=== PATIENT | female | born 1975 | race Caucasian/White ===

== ENCOUNTER 2019-11-12 11:41 | Emergency (ER) | payer BC, SELFPAY ==
[2019-11-12 11:48] VITALS: BP 136/75; PULSE 73; RESP 20; TEMP 37.2; O2SAT 100
--- NOTE | 2019-11-12 11:56 | ED.SKABFB ---
HPI - Skin/Abscess/Foreign Bdy General Chief complaint: Skin/Abscess/Foreign Body Stated complaint: rash on lower stomach Time Seen by Provider: 11/12/19 11:56 Source: patient and RN notes reviewed History of Present Illness HPI narrative: Patient is a 44-year-old female who presents the urgent care with complaints of an itchy red rash to the right abdomen. Patient states that it showed up nearly 1 week ago. Patient states that she has been putting hydrocortisone cream on the area. No other acute complaints. No acute distress noted. Patient read the plan of care. Location: buttocks Related Data Allergies Allergy/AdvReac Type Severity Reaction Status Date / Time No Known Allergies Allergy Unverified 11/12/19 11:51 Review of Systems Review of Systems: Narrative: CONSTITUTIONAL: Denies fever, chills, or sweats. EYES: Denies visual changes, redness, or discharge. ENT: Denies rhinorrhea, congestion, sore throat, or otalgia. CARDIOVASCULAR: Denies chest pain, palpitations, or edema. RESPIRATORY: Denies cough or dyspnea. GASTROINTESTINAL: Denies abdominal pain, nausea, vomiting, or diarrhea. GENITOURINARY: Denies dysuria or hematuria. SKIN: Reports of an itchy red rash to the right abdomen MUSCULOSKELETAL: Denies back pain, joint pain, or myalgia. NEUROLOGIC: Denies headache, numbness, or weakness. All other systems reviewed are negative, except as documented in HPI. PMFSH Comments At the time of my signature, I reviewed and agree with the nursing past medical, surgical, social, and family history. There is no relevant family history pertinent to the patient complaint. Exam Narrative: Exam Narrative: GENERAL: This is a well-nourished, well-developed patient, in no apparent distress. HEAD: normocephalic, atraumatic. EYES: PERRL. Sclera clear/white. Vision is grossly intact. EARS: External ears normal NOSE: External nose normal with no obvious nasal discharge, nares without redness, no rhinorrhea. THROAT: Mucous membranes moist NECK: Neck supple SKIN: Erythemic raised dermatitis noted to the right abdomen measuring approximately 3 cm in length and 4 cm in width with moderate surrounding ecchymosis; fungal versus Rhus dermatitis NEURO: awake, alert, and oriented to person, place and time. There were no obvious focal neurologic abnormalities. EXTREMITIES: No clubbing, cyanosis, or edema. Course Vital Signs Vital signs: Vital Signs Temperature 98.9 F 11/12/19 11:48 Pulse Rate 73 11/12/19 11:48 Respiratory Rate 11/12/19 11:48 Blood Pressure 136/75 11/12/19 11:48 Pulse Oximetry 100 11/12/19 11:48 Temperature 98.9 F 11/12/19 11:48 Pulse Rate 73 11/12/19 11:48 Respiratory Rate 11/12/19 11:48 Blood Pressure 136/75 11/12/19 11:48 Pulse Oximetry 100 11/12/19 11:48 Reviewed MDM - Skin/Abscess/Foreign Bdy MDM Narrative Medical decision making narrative: Advised the patient to complete the steroid regimen as prescribed. The prescription powder is used to cover any type of yeast dermatitis. Try to avoid itching the area. Make sure to eat and drink with the medication. Do not wear occlusive clothing directly over the affected area. Follow-up with your PCP within 2 to 5 days if her worsening symptoms or failure to improve. Differential Diagnosis Differential diagnosis: Likely abscess of skin or subcutaneous tissue, cellulitis, impetigo and contact dermatitis Critical Care Time Critical Care Time Critical Care Time: No Discharge Plan Discharge Clinical Impression: Urticaria, Dermatitis Patient Disposition: Home, Self-Care Condition: Stable Instructions: Antibiotic Form, Contact Dermatitis (ED) Additional Instructions: Advised the patient to complete the steroid regimen as prescribed. The prescription powder is used to cover any type of yeast dermatitis. Try to avoid itching the area. Make sure to eat and drink with the medication. Do not wear occlusive clothing directly over
== END 2019-11-12 12:09 | disposition home or self-care (01) ==
PROVIDERS: Emergency Provider Nurse Practitioner Family; PCP Internal Medicine
DX: L50.9 Urticaria, unspecified (principal); L30.9 Dermatitis, unspecified
CPT/HCPCS: 99203; G0463

== ENCOUNTER 2022-05-12 08:13 | Emergency (ER) | payer BC, SELFPAY ==
--- NOTE | 2022-05-12 08:20 | ED.URI ---
HPI - URI/Sore Throat General Chief Complaint: Upper Respiratory Infection Stated Complaint: Sore Throat Time Seen by Provider: 05/12/22 08:20 Source: patient and RN notes reviewed History of Present Illness HPI Narrative: patient is a 46-year-old female who presents to the Urgent Care with complaints of sore throat for 1 week. Patient also reports of a mild runny nose she has been taking Mucinex, cold and flu medication. Denies any fevers, nausea, vomiting, body aches. Denies any known exposures. No acute distress noted. Patient aware of the plan of care. Some parts of this dictation were generated by voice recognition software and may contain typographical and/or grammatical inaccuracies. Related Data Home Medications Medication Instructions Recorded Confirmed citalopram 20 mg tablet 20 mg PO DAILY 05/12/22 05/12/22 Allergies Allergy/AdvReac Type Severity Reaction Status Date / Time No Known Allergies Allergy Unverified 05/12/22 08:40 Review of Systems Review of Systems: CONSTITUTIONAL: Denies fever, chills, or sweats. EYES: Denies visual changes, redness, or discharge. ENT: Reports rhinorrhea and sore throat CARDIOVASCULAR: Denies chest pain, palpitations, or edema. RESPIRATORY: Denies cough or dyspnea. GASTROINTESTINAL: Denies abdominal pain, nausea, vomiting, or diarrhea. GENITOURINARY: Denies dysuria or hematuria. SKIN: Denies rash or itching. MUSCULOSKELETAL: Denies back pain, joint pain, or myalgia. NEUROLOGIC: Denies headache, numbness, or weakness. All other systems reviewed are negative, except as documented in HPI. PMFSH Comments At the time of my signature, I reviewed and agree with the nursing past medical, surgical, social, and family history. There is no relevant family history pertinent to the patient complaint. Exam Narrative: GENERAL: This is a well-nourished, well-developed patient, in no apparent distress. HEAD: normocephalic, atraumatic. EYES: PERRL. Sclera clear/white. Vision is grossly intact. EARS: External ears normal, auditory canals clear and without drainage, TMs normal without perforation. Hearing grossly intact. NOSE: External nose normal with no obvious nasal discharge, nares without redness, no rhinorrhea. THROAT: Mucous membranes moist, posterior pharynx clear. mild erythema to posterior pharynx with moderate postnasal drainage NECK: Neck supple CARDIOVASCULAR: Regular rate and rhythm without murmurs, gallops, or rubs. RESPIRATORY: Clear to auscultation. Breath sounds equal bilaterally. No wheezes, rales, or rhonchi. SKIN: warm, intact with no suspicious lesions or rash, good texture and turgor. NEURO: awake, alert, and oriented to person, place and time. There were no obvious focal neurologic abnormalities. EXTREMITIES: No clubbing, cyanosis, or edema. Course Course Level of Care: Express Care Visit Vital Signs Vital signs: Vital Signs Temperature 99.7 F H 05/12/22 08:23 Pulse Rate 97 05/12/22 08:23 Respiratory Rate 16 05/12/22 08:23 Blood Pressure 126/79 05/12/22 08:23 Pulse Oximetry 100 05/12/22 08:23 Oxygen Delivery Room Air 05/12/22 08:23 Temperature 99.7 F H 05/12/22 08:23 Pulse Rate 97 05/12/22 08:23 Respiratory Rate 16 05/12/22 08:23 Blood Pressure 126/79 05/12/22 08:23 Pulse Oximetry 100 05/12/22 08:23 Oxygen Delivery Room Air 05/12/22 08:23 Reviewed MDM - URI/Sore Throat MDM Narrative Medical decision making narrative: due to the lack of resources, our facility is unable to do a rapid strep. Educated the patient on culture and we will call within 72 hours if culture is positive antibiotics are necessary. Advised patient to use [id number] antihistamines for symptom relief such as Claritin / Zyrtec / Mucinex. Use Tylenol/ ibuprofen. Use a humidifier at night. Follow-up with your PCP within 2-5 days or for worsening symptoms or failure to improve. Discussed bacterial versus sinusitis with
[2022-05-12 08:23] VITALS: BP 126/79; PULSE 97; RESP 16; TEMP 37.6; O2SAT 100
== END 2022-05-12 09:08 | disposition home or self-care (01) ==
PROVIDERS: Emergency Provider Nurse Practitioner Family; PCP Internal Medicine
DX: J02.9 Acute pharyngitis, unspecified (principal)
CPT/HCPCS: 87081; 99213; G0463

== ENCOUNTER 2025-06-04 12:12 | Emergency (ER) | payer OTHER, SELFPAY ==
--- OUTSIDE RECORDS SUMMARY | 2025-06-04 12:15 | XMS_ITS | Encounter Summary ---
Author Organization [facility] Address 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 Sex 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 Gender Identity Not on file Sexual Orientation Not on file documented as of this encounter Last Filed Vital Signs Vital Sign Reading Time Taken Comments Blood Pressure 120/70 08/11/2003 3:30 PM ELECTRICAL REPAIRER Pulse - - Temperature - - Respiratory Rate - - Oxygen Saturation - - Inhaled Oxygen Concentration - - Weight 88 kg (194 lb) 08/11/2003 3:30 PM ELECTRICAL REPAIRER Height - - Body Mass Index - - documented in this encounter Plan of Treatment Upcoming Encounters Date Type Department Care Team (Late Contact Info) Description 09/30/2025 11:00 AM CDT Office Visit [facility] Primary Care [address] [place] [address] Skyler Doll MD [address] [place] [address] [address] [place] [address] documented as of this encounter Visit Diagnoses Not on filedocumented in this encounter Care Teams Framing Manager Relationship Specialty Start Date End Date Skyler Doll MD PCP - General 09/07/07 documented as of this encounter
--- OUTSIDE RECORDS SUMMARY | 2025-06-04 12:15 | XMS_ITS | Encounter Summary ---
Author Organization [facility] Address [address] [place] [address] Care Team Providers Care Rail Engineer Name Role Phone Skyler Doll MD Primary Care Provider [phone] Encounter Details Date Type Department Care Team (Late Contact Info) Description 02/18/2004 Outpatient Historical [facility] Internal Medicine [address] [address] Skyler Doll MD [address] [place] [address] [address] [place] [address] Social History Tobacco Use Types Packs/Day Years Used Date Smoking Tobacco: Never Assessed Comments Unknown Sex and Gender Information Value Date Recorded Sex Assigned at Not on file Legal Sex Female 3:12 AM 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 OR PACKER AND WEIGHER Gender Identity Not on file Sexual Orientation Not on file documented as of this encounter Last Filed Vital Signs Vital Sign Reading Time Taken Comments Blood Pressure 128/80 02/18/2004 3:00 PM CDT Pulse - - Temperature - - Respiratory Rate - - Oxygen Saturation - - Inhaled Oxygen Concentration - - Weight 89.8 kg (198 lb) 02/18/2004 3:00 PM CDT Height - - Body Mass Index - - documented in this encounter Plan of Treatment Upcoming Encounters Date Type Department Care Team (Late Contact Info) Description 09/30/2025 11:00 AM CDT Office Visit [facility] Primary Care [address] [place] [address] Skyler Doll MD [address] [place] [address] [address] [place] [address] documented as of this encounter Visit Diagnoses Not on filedocumented in this encounter Care Teams Rail Engineer Relationship Specialty Start Date End Date Skyler Doll MD PCP - General 09/07/07 documented as of this encounter
--- OUTSIDE RECORDS SUMMARY | 2025-06-04 12:15 | XMS_ITS | Encounter Summary ---
Author Organization [facility] Address [address] [place] [address] Care Team Providers Care Bag Inspector Name Role Phone Skyler Doll MD Primary Care Provider [phone] Encounter Details Date Type Department Care Team (Late st Contact Info) Description 08/30/2004 Outpatient Historical [facility] Internal Medicine [address] [address] Skyler Doll MD [address] [place] [address] [address] [place] [address] Social History Tobacco Use Types Packs/Day Years Used Date Smoking Tobacco: Never Assessed Comments Unknown Sex and Gender Information Value Date Recorded Sex Assigned at Not on file 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 Sex Female 3:12 AM LEAD SUSTAINABILITY SPECIALIST Gender Identity Not on file Sexual Orientation Not on file documented as of this encounter Last Filed Vital Signs Vital Sign Reading Time Taken Comments Blood Pressure 130/80 08/30/2004 3:30 PM LEAD SUSTAINABILITY SPECIALIST Pulse - - Temperature 36.4 C (97.6 F) 08/30/2004 3:30 PM LEAD SUSTAINABILITY SPECIALIST Respiratory Rate - - Oxygen Saturation - - Inhaled Oxygen Concentration - - Weight 100.2 kg (221 lb) 08/30/2004 3:30 PM LEAD SUSTAINABILITY SPECIALIST Height - - Body Mass Index - - documented in this encounter Plan of Treatment Upcoming Encounters Date Type Department Care Team (Late Contact Info) Description 09/30/2025 11:00 AM CDT Office Visit [facility] Primary Care [address] [place] [address] Skyler Doll MD [address] [place] [address] [place] [id number] documented as of this encounter Visit Diagnoses Not on filedocumented in this encounter Care Teams Bag Inspector Relationship Specialty Start Date End Date Sklyer Doll MD PCP - General 09/07/07 documented as of this encounter
--- OUTSIDE RECORDS SUMMARY | 2025-06-04 12:15 | XMS_ITS | Encounter Summary ---
Author Organization [facility] Address [address] [place] [address] Care Team Providers Care Qa Lead Name Role Phone Skyler Doll MD Primary Care Provider [phone] Encounter Details Date Type Department Care Team (Latest Contact Info) Description 02/18/2008 Outpatient Historical [facility] Dflt Department Skyler Doll MD [address] [place] [address] [address] [place] [address] Cellulitis and Abscess of Unspecified Site Social History Tobacco Use Types Packs/Day Years Used Date Smoking Tobacco: Never Alcohol Use Standard Drinks/Week Comments No 0 (1 standard drink = 0.6 oz pur e alcohol) Comments No Sex and Gender Information Value Date Recorded Sex Assigned at Not on file 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 Sex Female 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 SCIENCE TEACHER Gender Identity Not on file Sexual Orientation Not on file documented as of this encounter Plan of Treatment Upcoming Encounters Date Type Department Care Team (Late st Contact Info) Description 09/30/2025 11:00 AM CDT Office Visit [facility] Primary Care [address] [place] [address] Skyler Doll MD [address] [place] [address] [address] [place] [address] documented as of this encounter Visit Diagnoses Diagnosis Cellulitis and abscess of unspecified site documented in this encounter Care Teams Qa Lead Relationship Specialty Start Date End Date Skyler Doll MD PCP - General 09/07/07 documented as of this encounter
--- OUTSIDE RECORDS SUMMARY | 2025-06-04 12:15 | XMS_ITS | Encounter Summary ---
Author Organization [facility] Address [address] [place] [address] Care Team Providers Care Childcare Attendant Name Role Phone Skyler Doll MD Primary Care Provider [phone] Encounter Details Date Type Department Care Team (Late Contact Info) Description 11/08/[address] [facility] Internal Medicine [address] [address] Skyler Doll MD [address] [place] [address] Social History Tobacco Use Types Packs/Day Years Used Date Smoking Tobacco: Never Assessed Comments Unknown Sex and Gender Information Value Date Recorded Sex Assigned at Not on file Legal Sex Female 3:12 AM DIRECTOR OF PHOTOGRAPHY Gender Identity Not on file Sexual Orientation Not on file documented as of this encounter Plan of Treatment Upcoming Encounters Date Type Department Care Team (Late Contact Info) Description 09/30/2025 11:00 AM CDT Office Visit [facility] Primary Care [address] [place] [address] Skyler Doll MD [address] [place] [address] [address] [place] [address] documented as of this encounter Visit Diagnoses Not on filedocumented in this encounter Care Teams Childcare Attendant Relationship Specialty Start Date End Date Skyler Doll MD PCP - General 09/07/07 documented as of this encounter
--- OUTSIDE RECORDS SUMMARY | 2025-06-04 12:15 | XMS_ITS | Encounter Summary ---
Author Organization [facility] Address [address] [place] [address] Care Team Providers Care Canning Machine Operator Name Role Phone Skyler Doll MD Primary Care Provider [phone] Encounter Details Date Type Department Care Team (Late Contact Info) Description 11/12/2003 Outpatient Historical [facility] Internal Medicine [address] [address] Skyler Doll MD [address] [place] [address] Social History Tobacco Use Types Packs/Day Years Used Date Smoking Tobacco: Never Assessed Comments Unknown Sex and Gender Information Value Date Recorded Sex Assigned at Not on file Legal Sex Female 3:12 AM CLEANING MATRON Gender Identity Not on file Sexual Orientation Not on file documented as of this encounter Plan of Treatment Upcoming Encounters Date Type Department Care Team (Late Contact Info) Description 09/30/2025 11:00 AM CDT Office Visit [facility] Primary Care [address] [place] [address] Skyler Doll MD [address] [place] [address] [address] [place] [address] documented as of this encounter Visit Diagnoses Not on filedocumented in this encounter Care Teams Canning Machine Operator Relationship Specialty Start Date End Date Skyler Doll MD PCP - General 09/07/07 documented as of this encounter
--- OUTSIDE RECORDS SUMMARY | 2025-06-04 12:15 | XMS_ITS | Encounter Summary ---
Author Organization [facility] Address [address] [place] [address] Care Team Providers Care Receiver Stocker Name Role Phone Skyler Doll MD Primary Care Provider [phone] Encounter Details Date Type Department Care Team (Late Contact Info) Description 12/02/2003 Outpatient Historical [facility] Internal Medicine [address] [address] Skyler Doll MD [address] [place] [address] [address] [place] [address] Social History Tobacco Use Types Packs/Day Years Used Date Smoking Tobacco: Never Assessed Comments Unknown Sex and Gender Information Value Date Recorded Sex Assigned at Not on file Legal Sex Female 3:12 AM SECOND COOK AND BAKER Gender Identity Not on file Sexual Orientation Not on file documented as of this encounter Last Filed Vital Signs Vital Sign Reading Time Taken Comments Blood Pressure 114/78 12/02/2003 1:30 PM CDT Pulse - - Temperature - - Respiratory Rate - - Oxygen Saturation - - Inhaled Oxygen Concentration - - Weight 83.5 kg (184 lb) 12/02/2003 1:30 PM CDT Height - - Body Mass Index - - documented in this encounter Plan of Treatment Upcoming Encounters Date Type Department Care Team (Late Contact Info) Description 09/30/2025 11:00 AM CDT Office Visit [facility] Primary Care [address] [place] [address] Skyler Doll MD [address] [place] [address] [address] [place] [address] documented as of this encounter Visit Diagnoses Not on filedocumented in this encounter Care Teams Receiver Stocker Relationship Specialty Start Date End Date Skyler Doll MD PCP - General 09/07/07 documented as of this encounter
--- OUTSIDE RECORDS SUMMARY | 2025-06-04 12:15 | XMS_ITS | Encounter Summary ---
Author Organization [facility] Address [address] [place] [address] Care Team Providers Care Coil Finisher Name Role Phone Skyler Doll MD Primary Care Provider [phone] Encounter Details Date Type Department Care Team (Late Contact Info) Description 11/12/2003 Outpatient Historical [facility] Internal Medicine [address] [address] Skyler Doll MD [address] [place] [address] Social History Tobacco Use Types Packs/Day Years Used Date Smoking Tobacco: Never Assessed Comments Unknown Sex and Gender Information Value Date Recorded Sex Assigned at Not on file Legal Sex Female 3:12 AM EDITORIAL CARTOONIST Gender Identity Not on file Sexual Orientation Not on file documented as of this encounter Plan of Treatment Upcoming Encounters Date Type Department Care Team (Late Contact Info) Description 09/30/2025 11:00 AM CDT Office Visit [facility] Primary Care [address] [place] [address] Skyler Doll MD [address] [place] [address] [address] [place] [address] documented as of this encounter Visit Diagnoses Not on filedocumented in this encounter Care Teams Coil Finisher Relationship Specialty Start Date End Date Skyler Doll MD PCP - General 09/07/07 documented as of this encounter
--- OUTSIDE RECORDS SUMMARY | 2025-06-04 12:15 | XMS_ITS | Encounter Summary ---
Author Organization [facility] Address [address] [place] [address] Care Team Providers Care Plugman Name Role Phone Skyler Doll MD Primary Care Provider Encounter Details Date Type Department Care Team (Late st Contact Info) Description 12/05/2005 Orders Only [facility] Internal Medicine [address] [address] Skyler Doll MD [address] [place] [address] Social History Tobacco Use Types Packs/Day Years Used Date Smoking Tobacco: Never Assessed Comments Unknown Sex and Gender Information Value Date Recorded Sex Assigned at Not on file Legal Sex Female 3:12 AM WOOD LATHER Gender Identity Not on file Sexual Orientation Not on file documented as of this encounter Progress Notes * Skyler Doll MD - 03/21/2008 8:56 AM CDT TIME:08:25 am culture with resistent staph, finish abx, decontaminate with nasal oint and hibiclens camila 12/05/05 08:26 am ADDITIONAL TEST REQUESTS/ORDERS: . 682.9-CELLULITIS/ABSCESS MEDICATIONS: MUPIROCIN EXTERNAL OINTMENT 2 %, DIRECTED, 7 Duration/Days Supply, status: NEW PRESCRIPTION, 12/05/2005, Comment: apply bid x 7 d to both nostrils. HIBICLENS EXTERNAL LIQUID 4 %, DIRECTED, 10 Duration/Days Supply, status: NEW PRESCRIPTION, 12/05/2005, Comment: use daily whole body wash x 10d. ukendr 12/05/05 03:04 pm STAFF FOLLOW UP: . spoke with pt. given above results and directions phoned script to pharmacy. / ricardo Electronically Signed by: Ngoc Bender on Monday, December 05, 2005 documented in this encounter Plan of Treatment Upcoming Encounters Date Type Department Care Team (Late st Contact Info) Description 09/30/2025 11:00 AM CDT Office Visit [facility] [address] [place] [address] Skyler Doll MD [address] [place] [address] [address] [place] [address] documented as of this encounter Visit Diagnoses Not on filedocumented in this encounter Care Teams Plugman Relationship Specialty Start Date End Date Skyler Doll MD PCP - General 09/07/07 documented as of this encounter
--- OUTSIDE RECORDS SUMMARY | 2025-06-04 12:15 | XMS_ITS | Encounter Summary ---
Author Organization [facility] Address [address] [place] [address] Care Team Providers Care Global Regulatory Lead Name Role Phone Skyler Doll MD Primary Care Provider [phone] Encounter Details Date Type Department Care Team (Late Contact Info) Description 03/08/2004 Outpatient Historical [facility] Internal Medicine [address] [address] Skyler Doll MD [address] [place] [address] Social History Tobacco Use Types Packs/Day Years Used Date Smoking Tobacco: Never Assessed Comments Unknown Sex and Gender Information Value Date Recorded Sex Assigned at Not on file Legal Sex Female 3:12 AM GLUING PRESSMAN Gender Identity Not on file Sexual Orientation Not on file documented as of this encounter Plan of Treatment Upcoming Encounters Date Type Department Care Team (Late Contact Info) Description 09/30/2025 11:00 AM CDT Office Visit [facility] Primary Care [address] [place] [address] Skyler Doll MD [address] [place] [address] [address] [place] [address] documented as of this encounter Visit Diagnoses Not on filedocumented in this encounter Care Teams Global Regulatory Lead Relationship Specialty Start Date End Date Skyler Doll MD PCP - General 09/07/07 documented as of this encounter
--- OUTSIDE RECORDS SUMMARY | 2025-06-04 12:15 | XMS_ITS | Encounter Summary ---
Author Organization [facility] Address 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 Sex Female 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 Gender Identity Not on file Sexual Orientation Not on file documented as of this encounter Last Filed Vital Signs Vital Sign Reading Time Taken Comments Blood Pressure 120/80 05/31/2004 3:00 PM VIDEO ARCADE MANAGER Pulse - - Temperature - - Respiratory Rate - - Oxygen Saturation - - Inhaled Oxygen Concentration - - Weight 98 kg (216 lb) 05/31/2004 3:00 PM VIDEO ARCADE MANAGER Height - - Body Mass Index - - documented in this encounter Plan of Treatment Upcoming Encounters Date Type Department Care Team (Late Contact Info) Description 09/30/2025 11:00 AM CDT Office Visit [facility] Primary Care [address] [place] [address] Skyler Doll MD [address] [place] [address] [address] [place] [address] documented as of this encounter Visit Diagnoses Not on filedocumented in this encounter Care Teams Lead Solutions Architect Relationship Specialty Start Date End Date Skyler Dlol MD PCP - General 09/07/07 documented as of this encounter
--- OUTSIDE RECORDS SUMMARY | 2025-06-04 12:15 | XMS_ITS | Encounter Summary ---
Author Organization [facility] Address [address] [place] [address] Care Team Providers Care Clay Caster Name Role Phone Skyler Doll MD Primary Care Provider [phone] Encounter Details Date Type Department Care Team (Late Contact Info) Description 04/16/2007 Outpatient Historical [facility] Internal Medicine [address] [address] Skyler Doll MD [address] [place] [address] [address] [place] [address] Social History Tobacco Use Types Packs/Day Years Used Date Smoking Tobacco: Never Assessed Comments Unknown Sex and Gender Information Value Date Recorded Sex Assigned at Not on file 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 Gender Identity Not on file Sexual Orientation Not on file documented as of this encounter Last Filed Vital Signs Vital Sign Reading Time Taken Comments Blood Pressure 130/80 04/16/2007 3:15 PM MACHINE PACKER Pulse - - Temperature 36.4 C (97.6 F) 04/16/2007 3:15 PM MACHINE PACKER Respiratory Rate - - Oxygen Saturation - - Inhaled Oxygen Concentration - - Weight 100.2 kg (221 lb) 04/16/2007 3:15 PM MACHINE PACKER Height - - Body Mass Index - - documented in this encounter Plan of Treatment Upcoming Encounters Date Type Department Care Team (Late Contact Info) Description 09/30/2025 11:00 AM CDT Office Visit [facility] Primary Care [address] [place] [address] Skyler Doll MD [address] [place] [address] [place] [address] documented as of this encounter Visit Diagnoses Not on filedocumented in this encounter Care Teams Clay Caster Relationship Specialty Start Date End Date Skyler Doll MD PCP - General 09/07/07 documented as of this encounter
--- OUTSIDE RECORDS SUMMARY | 2025-06-04 12:15 | XMS_ITS | Encounter Summary ---
Author Organization [facility] Address 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 Gender Identity Not on file Sexual Orientation Not on file documented as of this encounter Last Filed Vital Signs Vital Sign Reading Time Taken Comments Blood Pressure 120/80 05/19/2004 3:30 PM JEEPER OPERATOR Pulse - - Temperature 36.3 C (97.4 F) 05/19/2004 3:30 PM JEEPER OPERATOR Respiratory Rate - - Oxygen Saturation - - Inhaled Oxygen Concentration - - Weight 97.1 kg (214 lb) 05/19/2004 3:30 PM JEEPER OPERATOR Height - - Body Mass Index - - documented in this encounter Plan of Treatment Upcoming Encounters Date Type Department Care Team (Late Contact Info) Description 09/30/2025 11:00 AM CDT Office Visit [facility] Primary Care [address] [place] [address] Skyler Doll MD [address] [place] [address] [address] [place] [address] documented as of this encounter Visit Diagnoses Not on filedocumented in this encounter Care Teams Manager Camp Relationship Specialty Start Date End Date Skyler Doll MD PCP - General 09/07/07 documented as of this encounter
--- OUTSIDE RECORDS SUMMARY | 2025-06-04 12:15 | XMS_ITS | Encounter Summary ---
Author Organization [facility] Address [address] [place] [address] Care Team Providers Care Medical Technologist Blood Bank Name Role Phone Skyler Doll MD Primary Care Provider [phone] Encounter Details Date Type Department Care Team (Late Contact Info) Description 11/21/2006 Outpatient Historical 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 Primary Care [address] [place] [address] Skyler Doll MD [address] [place] [address] [address] [place] [address] documented as of this encounter Visit Diagnoses Not on filedocumented in this encounter Care Teams Medical Technologist Blood Bank Relationship Specialty Start Date End Date Skyler Doll MD PCP - General 09/07/07 documented as of this encounter
--- OUTSIDE RECORDS SUMMARY | 2025-06-04 12:15 | XMS_ITS | Encounter Summary ---
Author Organization [facility] Address [address] [place] [address] Care Team Providers Care Practice Managers Name Role Phone Skyler Doll MD Primary Care Provider [phone] Encounter Details Date Type Department Care Team (Late Contact Info) Description 06/24/2005 Outpatient Historical [facility] Internal Medicine [address] [phone] Skyler Doll MD [address] [place] [address] [address] [place] [address] Social History Tobacco Use Types Packs/Day Years Used Date Smoking Tobacco: Never Assessed Comments Unknown Sex and Gender Information Value Date Recorded Sex Assigned at Not on file Legal Sex Female 3:12 AM LEAD APPLICATIONS DEVELOPER Gender Identity Not on file Sexual Orientation Not on file documented as of this encounter Last Filed Vital Signs Vital Sign Reading Time Taken Comments Blood Pressure 130/80 06/24/2005 1:15 PM LEAD APPLICATIONS DEVELOPER Pulse - - Temperature - - Respiratory Rate - - Oxygen Saturation - - Inhaled Oxygen Concentration - - Weight 106.1 kg (234 lb) 06/24/2005 1:15 PM LEAD APPLICATIONS DEVELOPER Height - - Body Mass Index - - documented in this encounter Plan of Treatment Upcoming Encounters Date Type Department Care Team (Late Contact Info) Description 09/30/2025 11:00 AM CDT Office Visit [facility] Primary Care [address] [place] [address] Skyler Doll MD [address] [place] [address] [address] [place] [address] documented as of this encounter Visit Diagnoses Not on filedocumented in this encounter Care Teams Practice Managers Relationship Specialty Start Date End Date Skyler Doll MD PCP - General 09/07/07 documented as of this encounter
--- OUTSIDE RECORDS SUMMARY | 2025-06-04 12:15 | XMS_ITS | Encounter Summary ---
Author Organization [facility] Address [address] [place] [address] Care Team Providers Care Combat Rifle Crewmember Name Role Phone Skyler Doll MD Primary Care Provider [phone] Encounter Details Date Type Department Care Team (Late Contact Info) Description 11/29/2005 Outpatient Historical [facility] Internal Medicine [address] [address] Skyler Doll MD [address] [place] [address] [address] [place] [address] Social History Tobacco Use Types Packs/Day Years Used Date Smoking Tobacco: Never Assessed Comments Unknown Sex and Gender Information Value Date Recorded Sex Assigned at Not on file Legal Sex Female 3:12 AM ADDICTION MEDICINE PHYSICIAN Gender Identity Not on file Sexual Orientation Not on file documented as of this encounter Last Filed Vital Signs Vital Sign Reading Time Taken Comments Blood Pressure 130/70 11/29/2005 9:00 AM CDT Pulse - - Temperature - - Respiratory Rate - - Oxygen Saturation - - Inhaled Oxygen Concentration - - Weight 108.4 kg (239 lb) 11/29/2005 9:00 AM CDT Height - - Body Mass Index - - documented in this encounter Plan of Treatment Upcoming Encounters Date Type Department Care Team (Late Contact Info) Description 09/30/2025 11:00 AM CDT Office Visit [facility] Primary Care [address] [place] [address] Skyler Doll MD [address] [place] [address] [address] [place] [address] documented as of this encounter Visit Diagnoses Not on filedocumented in this encounter Care Teams Combat Rifle Crewmember Relationship Specialty Start Date End Date Skyler Doll MD PCP - General 09/07/07 documented as of this encounter
--- OUTSIDE RECORDS SUMMARY | 2025-06-04 12:15 | XMS_ITS | Encounter Summary ---
Author Organization [facility] Address 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 Gender Identity Not on file Sexual Orientation Not on file documented as of this encounter Plan of Treatment Upcoming Encounters Date Type Department Care Team (Late Contact Info) Description 09/30/2025 11:00 AM CDT Office Visit [facility] Primary Care [address] [place] [address] Skyler Doll MD [address] [place] [address] [address] [place] [address] documented as of this encounter Visit Diagnoses Not on filedocumented in this encounter Care Teams Drill Doctor Relationship Specialty Start Date End Date Skyler Doll MD PCP - General 09/07/07 documented as of this encounter
--- OUTSIDE RECORDS SUMMARY | 2025-06-04 12:15 | XMS_ITS | Encounter Summary ---
Author Organization [facility] Address [address] [place] [address] Care Team Providers Care Licensed Mortgage Loan Officer Name Role Phone Skyler Doll MD Primary Care Provider [phone] Encounter Details Date Type Department Care Team ([facility] Contact Info) Description 11/27/2006 Outpatient Historical [facility] Internal Medicine [address] [address] Skyler Doll MD [address] [place] [address] [address] [place] [address] Social History Tobacco Use Types Packs/Day Years Used Date Smoking Tobacco: Never Assessed Comments Unknown Sex and Gender Information Value Date Recorded Sex Assigned at Not on file Legal Sex Female 3:12 AM RIBBON INKER Gender Identity Not on file Sexual Orientation Not on file documented as of this encounter Last Filed Vital Signs Vital Sign Reading Time Taken Comments Blood Pressure 130/80 11/27/2006 3:15 PM CDT Pulse - - Temperature 36.6 C (97.8 F) 11/27/2006 3:15 PM CDT Respiratory Rate - - Oxygen Saturation - - Inhaled Oxygen Concentration - - Weight - - Height - - Body Mass Index - - documented in this encounter Plan of Treatment Upcoming Encounters Date Type Department Care Team (Late Contact Info) Description 09/30/2025 11:00 AM CDT Office Visit [facility] Primary Care [address] [place] [address] Skyler Doll MD [address] [place] [address] [address] [place] [address] documented as of this encounter Visit Diagnoses Not on filedocumented in this encounter Care Teams Licensed Mortgage Loan Officer Relationship Specialty Start Date End Date Skyler Doll MD PCP - General 09/07/07 documented as of this encounter
--- OUTSIDE RECORDS SUMMARY | 2025-06-04 12:15 | XMS_ITS | Encounter Summary ---
Author Organization [facility] Address [address] [place] [address] Care Team Providers Care Service Technician Name Role Phone Skyler Doll MD Primary Care Provider [phone] Encounter Details Date Type Department Care Team (Late st Contact Info) Description 06/24/2005 Orders Only [facility] Internal Medicine [address] [address] Skyler Doll MD [address] [place] [address] Social History Tobacco Use Types Packs/Day Years Used Date Smoking Tobacco: Never Assessed Comments Unknown Sex and Gender Information Value Date Recorded Sex Assigned at Not on file Legal Sex Female 3:12 AM 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 HISTORY: HISTORY: 1-2d lesion lip, painful 300.00-ANXIETY The anxiety remains stable. 780.39-SEIZURE stable PHYSICAL EXAMINATION: EARS, NOSE, MOUTH AND THROAT: lip with nodule, vesicle, swelling EARS: Tympanic membranes shiny without retraction. Canals unremarkable. Hearing grossly normal. ORAL: above NECK/THYROID: Trachea midline. No thyroid enlargement, tenderness, or mass. No supraclavicular or cervical adenopathy. RESPIRATORY: Clear to auscultation and percussion. Normal respiratory effort. CARDIOVASCULAR: CARDIAC: Regular rhythm. No murmurs, rubs, or gallops. EDEMA/VARICOSITIES OF EXTREMITIES: No edema or varicosities. ASSESSMENT/PLAN: 300.00-ANXIETY MEDICATIONS: EFFEXOR XR ORAL CAPSULE 24 HR 75 MG, 1 Every Day, 90 Dispensed, 3 Fills, 90 Duration/Days Supply, status: CONTINUED, 06/24/2005. 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 ZITHROMAX Z-KOREY ORAL TABLET 250 MG, DIRECTED, 1 Dispensed, status: NEW PRESCRIPTION, 08/30/2004. RETURN VISIT : Instructed to call if not improving. Electronically Signed by: Skyler Doll MD on Friday, June 24, 2005 documented in this encounter Plan of Treatment Upcoming Encounters Date Type Department Care Team (Late st Contact Info) Description 09/30/2025 11:00 AM CDT Office Visit [facility] Primary Care [address] [place] [address] Skyler Doll MD [address] [place] [address] documented as of this encounter Visit Diagnoses Not on filedocumented in this encounter Care Teams Service Technician Relationship Specialty Start Date End Date Skyler Doll MD PCP - General 09/07/07 documented as of this encounter
--- OUTSIDE RECORDS SUMMARY | 2025-06-04 12:15 | XMS_ITS | Encounter Summary ---
Author Organization [facility] Address [address] [place] [address] Care Team Providers Care Marble Mechanic Helper Name Role Phone Skyler Doll MD Primary Care Provider [phone] Encounter Details Date Type Department Care Team (Late Contact Info) Description 03/08/[address] [facility] Internal Medicine [address] [address] Skyler Doll MD [address] [place] [address] Social History Tobacco Use Types Packs/Day Years Used Date Smoking Tobacco: Never Assessed Comments Unknown Sex and Gender Information Value Date Recorded Sex Assigned at Not on file Legal Sex Female 3:12 AM ASSISTANT EDUCATION DIRECTOR Gender Identity Not on file Sexual Orientation Not on file documented as of this encounter Plan of Treatment Upcoming Encounters Date Type Department Care Team (Late Contact Info) Description 09/30/2025 11:00 AM CDT Office Visit [facility] Primary Care [address] [place] [address] Skyler Doll MD [address] [place] [address] [address] [place] [address] documented as of this encounter Visit Diagnoses Not on filedocumented in this encounter Care Teams Marble Mechanic Helper Relationship Specialty Start Date End Date Skyler Doll MD PCP - General 09/07/07 documented as of this encounter
--- OUTSIDE RECORDS SUMMARY | 2025-06-04 12:15 | XMS_ITS | Encounter Summary ---
Author Organization [facility] Address [address] [place] [address] Care Team Providers Care Shipping Room Supervisor Name Role Phone Skyler Doll MD Primary Care Provider [phone] Encounter Details Date Type Department Care Team (Late Contact Info) Description 01/21/2005 Outpatient Historical [facility] Internal Medicine [address] [address] Skyler Doll MD [address] [place] [address] [address] [place] [address] Social History Tobacco Use Types Packs/Day Years Used Date Smoking Tobacco: Never Assessed Comments Unknown Sex and Gender Information Value Date Recorded Sex Assigned at Not on file 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 Sex Female 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 Gender Identity Not on file Sexual Orientation Not on file documented as of this encounter Last Filed Vital Signs Vital Sign Reading Time Taken Comments Blood Pressure 120/80 01/21/2005 1:00 PM CDT Pulse - - Temperature - - Respiratory Rate - - Oxygen Saturation - - Inhaled Oxygen Concentration - - Weight 106.1 kg (234 lb) 01/21/2005 1:00 PM CDT Height - - Body Mass Index - - documented in this encounter Plan of Treatment Upcoming Encounters Date Type Department Care Team (Late Contact Info) Description 09/30/2025 11:00 AM CDT Office Visit [facility] Primary Care [address] [place] [address] Skyler Doll MD [address] [place] [address] [address] [place] [address] documented as of this encounter Visit Diagnoses Not on filedocumented in this encounter Care Teams Shipping Room Supervisor Relationship Specialty Start Date End Date Skyler Doll MD PCP - General 09/07/07 documented as of this encounter
--- OUTSIDE RECORDS SUMMARY | 2025-06-04 12:15 | XMS_ITS | Clinical Summary ---
Author Organization [facility] Address [address] [place] [address] Care Team Providers Care Meter/Relay Craftsman Name Role Phone Skyler Doll MD Primary Care Provider [phone] Allergies Active Allergy Reactions Criticality Noted Date Comments No Known Allergies 12/09/2003 Medications phenytoin sodium (DILANTIN) 100 mg extended release capsule Take 3 Capsules (300 mg) by mouth daily. 90 Capsule 3 7 Active levothyroxine 25 mcg tablet Take 1 Tablet (25 mcg) by mouth daily clay worker. 90 Tablet 3 9 Active cholecalciferol, vitamin D3, (VITAMIN D3) 1,000 unitIndications:Vi tamin D insufficiency Take 2 Tablets (2,000 Units) by mouth daily. 9 Active cyclobenzaprine (FLEXERIL) 5 mg Tablet 3 Active citalopram (CeleXA) 20 mg tablet Take 1 Tablet (20 mg) by mouth daily. 90 Tablet 3 4 Active terbinafine HCL (LamISIL) 250 mg tablet Take 1 tablet by mouth once daily 30 Tablet 5 Active pravastatin (PRAVACHOL) 10 mg tablet Take 1 Tablet (10 mg) by mouth daily at bedtime. 100 Tablet 3 5 Active Active Problems Patient Care Coordination No te Formatting of this note migh t be different from the original. Prev 12/31/24 Problem Noted Date Diagnosed Date Vitamin D insufficiency 08/29/2018 GILMA (generalized anxiety disorder) 08/11/2003 Resolved Problems Problem Noted Date Diagnosed Date Resolved Date Screening for lipoid disorders 11/21/2006 09/07/2007 Cellulitis and abscess of unspecified site 11/29/2005 09/07/2007 Rash and other nonspecific skin eruption 08/25/2005 09/07/2007 Benign neoplasm of lip 06/24/200509/06 Obesity, unspecified 01/21/2005 008 Acute sinusitis, unspecified 08/30/2004 02/22/2010 Acute pharyngitis 05/31/2004 09/07/2007 Acute upper respiratory infe ctions of unspecified site 05/19/2004 09/07/2007 Infectious colitis, enteriti s, and gastroenteritis 03/08/2004 09/07/2007 Abnormalities of the hair 03/08/2004 Seizure disorder 12/02/2003 04/02/2024 Other specified viral warts 11/12/2003 09/07/2007 Encounters Date Type Department Care Team Description 05/27/2025 External Device Data ST[facility] ABSTRACTION Provider, Abstract 04/15/2025 External Device Data [facility] ABSTRACTION Provider, Abstract 04/09/2025 External Device Data [facility] ABSTRACTION Provider, Abstract 04/08/2025 External Device Data [facility] ABSTRACTION Provider, Abstract 04/02/2025 External Device Data [facility] ABSTRACTION Provider, Abstract 04/01/2025 External Device Data [facility] ABSTRACTION Provider, Abstract from Last 3 Months Immunizations Immunization Administration Dates Next Due (ADACEL/BOOSTRIX)(10 YR UP) TDAP VACCINE, 0.5ML, IM 12/09/2018,02/18/2008 Family History Medical History Relation Name Comments No Known Problems Brother High Cholesterol Father Hypertension Father High Cholesterol Mother No Known Problems Sister Relation Name Status Comments Brother Alive Father Alive Mother Alive Sister Alive Social History Tobacco Use Types Packs/Day Years Used Date Smoking Tobacco: Never Passive Smoke Exposure: Never Smokeless Tobacco: Never Tobacco Cessation:Counseling Given: No Alcohol Use Standard Drinks/Week Comments No 0 (1 standard drink = 0.6 oz pur e alcohol) social Comments No Sex and Gender Information Value Date Recorded Sex Assigned at Not on file Legal Sex Female 3:12 AM CHIEF ACCOUNTANT Gender Identity Not on file Sexual Orientation Not on file Last Filed Vital Signs Vital Sign Reading Time Taken Comments Blood Pressure 131/83 12/31/2024 10:45 AM CDT Pulse 72 12/31/2024 10:45 AM CDT Temperature 36.7 C (98 F) 04/03/2023 1:12 PM CDT Respiratory Rate - - Oxygen Saturation 99% 12/31/2024 10:45 AM CDT Inhaled Oxygen Concentration - - Weight 111.1 kg (245 lb) 12/31/2024 10:45 AM CDT Height 170.2 cm (5' 7) 12/31/2024 10:45 AM CDT Body Mass Index 38.37 12/31/2024 10:45 AM CDT Plan of Treatment Upcoming Encounters Date Type Department Care Team (Late st Contact Info) Description 09/30/2025 11:00 AM CDT Office Visit [facility] Care [address] [place] [address] Skyler Doll MD [address] [facility] [address] [place] [address] Health Maintenance Due Date Last Done Comments Pre-Diabetes and Diabetes Screening 1975 HEPATITIS B VACCINES (1 of 3 - 19+ 3-dose series) 08/13/1994 PAP SMEAR 05/22/2015 05/22/2012, 05/22/2012 CERVICAL CANCER SCREENING 05/22/2017 HPV/Cotest (21-29) 05/22/2017 05/22/2012 HPV/Cotest (30-65) 05/22/2017 05/22/2012 BREAST CANCER SCREENING 07/07/2018 07/07/2017, 07/07 FIT-DNA Q 3 years 08/13/2020 FIT/FOBT Q 1 year 08/13/2020 Flex Sig/CT Colonography Q 5 years 08/13/2020 INFLUENZA VACCINE (#1) 2025 DTAP/TDAP/TD VACCINES (3 - T d or Tdap) 12/09/2028 12/09/2018, 02/18/2008 COLORECTAL SCREENING 08/20/2034 08/20/2024, 08/21/19 25 Colorectal Cancer Screening 08/20/2034 Preventative Visit- Commercial Completed 0 12/31/2024, 08/02/2022, 07/18/2018, Additional history exists Procedures Procedure Name Priority Date/Time Associated Diagnosis Comments COLONOSCOPY REPORT Routine 08/20/2024 10 :50 AM CDT MAMMO SCREEN BILAT W OR WO CAD Routine 07/07/2017 Visit for screening mammogram CERV/VAG CYTOPATH, THIN PREP IMAGR RFLX HPV Routine 05/22/2012 12:00 AM CHIEF ACCOUNTANT from Last 3 Months or Most Recently Relevant to Health Maintenance Results * COLONOSCOPY REPORT (08/20/2024 10:50 AM CDT) us Abstract Provider GI PROCEDURE ORDERABLES Edited Result - Final [facility] CLIA# [id number] [id number] [place] [address] * MAMMO SCREEN BILAT W OR WO CAD (07/07/2017) Anatomical Region Laterality Modality Breast Bilateral Mammography Skyler Doll MD MAMMO ORDERABLES Final Result * CERV/VAG CYTOPATH, THIN PREP IMAGR RFLX HPV (05/22/2012 12:00 AM CHIEF ACCOUNTANT) CLINICAL INFORMATION [facility] Comment:Information not prov ided LAST MENSTRUAL PERIOD [facility] Comment:05/14/12 PREV PAP: [facility] Comment:1ST PREV BX: [facility] [employer] [facility] Comment:Information not prov ided SOURCE [facility] Comment:Endocervix ADEQUACY: [facility] [employer] [facility] Comment: Satisfactory for evaluation. Endocervical/transformation zone component absent. INTERPRETATION [facility] [employer] [facility] Comment:Negative for intraep ithelial lesion or malignancy. COMMENT [facility] [employer] [facility] Comment: This Pap test has been evaluated with computer assisted technology. Based on the cytology result, reflex High Risk HPV DNA testing was not performed. MOTION PICTURES CARTOONIST: [employer] [facility] Comment: RRS, CT(ASCP) Test Performed at: [facility] [address] [place] [address] RADHA EDWARD DO P 05/22/2012 Bri De La O JIGGER [facility] PATHOLOGY/CYTOLOGY ORDERABLES Final Result INTERFACE SYSTEM Refer to clinic/hospital department [facility] [address] [place] [id number] from Last 3 Months or Most Recently Relevant to Health Maintenance Insurance [facility] [id number] Care Teams Meter/Relay Craftsman Relationship Specialty Start Date End Date Skyler Doll MD PCP - General 09/07/07
--- OUTSIDE RECORDS SUMMARY | 2025-06-04 12:15 | XMS_ITS | Clinical Summary ---
Author Organization [facility] Address [address] [place] [address] Phone Care Team Providers Care Park Worker Supervisor Name Role Phone Skyler Doll MD Primary Care Provider [phone] Allergies No known active allergies Medications Meloxicam 15 MG Tablet Take 1 Tab by mouth daily. 10 Tab 12/09/2018 Active traMADol (ULTRAM) 50 MG TabletIndicatio ns:Cervical strain, acute, initial encounter Take 1 Tablet by mouth every 8 hours as needed for Moderate or more severe pain. 12 Tablet 12/15/2022 Active Immunizations Immunization Administration Dates Next Due TDAP Vaccine 12/15/2022(),12/09/2018 Social History Tobacco Use Types Packs/Day Years Used Date Smoking Tobacco: Never Smokeless Tobacco: Never Alcohol Use Standard Drinks/Week Comments Never 0 (1 standard drink = 0.6 oz pur e alcohol) AUDIT-C Answer Date Recorded Frequency of Alcohol Consumption Never 12/09/2018 Average Number of Drinks Not on file 019 Frequency of Binge Drinking Not on file 11/12 Comments No Sex and Gender Information Value Date Recorded Sex Assigned at Not on file Legal Sex Female 12:05 AM CDT Gender Identity Not on file Sexual Orientation Not on file Last Filed Vital Signs Vital Sign Reading Time Taken Comments Blood Pressure 143/92 12/15/2022 5:37 PM CDT Pulse 79 12/15/2022 5:37 PM CDT Temperature 36.1 C (96.9 F) 12/15/2022 5:37 PM CDT Respiratory Rate 16 12/15/2022 5:37 PM CDT Oxygen Saturation 100% 12/15/2022 5:37 PM CDT Inhaled Oxygen Concentration - - Weight 104.3 kg (230 lb) 12/15/2022 5:37 PM CDT Height 170.2 cm (5' 7) 12/15/2022 5:37 PM CDT Body Mass Index 36.02 12/15/2022 5:37 PM CDT Plan of Treatment Health Maintenance Due Date Last Done Comments Hepatitis C Virus (HCV) Screening 1975 Hepatitis B Immunization (1 of 3 - 19+ 3-dose series) 08/13/1994 Pap Smear 08/13/1996 Cervical Cancer Screening (CCS) 08/13/2005 HPV/Cotest 08/13/2005 Cologuard 08/13/2020 Colonoscopy 08/13/2020 Colorectal Cancer Screening 08/13/2020 Immunochemical Fecal Occult Blood 08/13/2020 Influenza Immunization (#1) 2025 06/10/2019 SARS-COV-2 Immunization ( - season) 2025 Respiratory Syncytial Virus (RSV) Immunization (Adult) (1 - 1-dose 75+ series) 08/13/2050 Discussion re Starting/Frequency of Mammograms Discontinued 07/07/2017 Mammogram Discontinued 07/07/2017 DTaP/Tdap/Td Immunization Discontinued 2018, 02/18/2008 Human Papillomavirus (HPV) Immunization (No Doses Required) Completed Meningococcal Immunization (ACWY) Aged Out No longer eligible based on patient's age to complete this topic Pneumococcal Immunization Combined Aged Out No longer eligible based on patient's age to complete this topic Rotavirus Immunization Aged Out No lo nger eligible based on patient's age to complete this topic Insurance [facility] Care Teams Park Worker Supervisor Relationship Specialty Start Date End Date Skyler Doll MD [address] [place] [address] PCP - General 12/09/18
--- OUTSIDE RECORDS SUMMARY | 2025-06-04 12:15 | XMS_ITS | Encounter Summary ---
Author Organization [facility] Address [address] [place] [address] Care Team Providers Care Astronomy Instructor Name Role Phone Skyler Doll MD Primary Care Provider [phone] Encounter Details Date Type Department Care Team (Late st Contact Info) Description 11/29/2005 Orders Only [facility] Internal Medicine [address] [address] Skyler Doll MD [address] [place] [address] Social History Tobacco Use Types Packs/Day Years Used Date Smoking Tobacco: Never Assessed Comments Unknown Sex and Gender Information Value Date Recorded Sex Assigned at Not on file Legal Sex Female 3:12 AM 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 HISTORY: 6d inc growth on lower, lip now inc in size ,severe pain with palption,no fevers chills HISTORY: 780.39-SEIZURE surya med PHYSICAL EXAMINATION: EARS, NOSE, MOUTH AND THROAT: ORAL: lower lip with small abscess--purulent dc with palpation RESPIRATORY: Clear to auscultation and percussion. Normal respiratory effort. CARDIOVASCULAR: CARDIAC: Regular rhythm. No murmurs, rubs, or gallops. ASSESSMENT/PLAN: 780.39-SEIZURE cont med, check dilantin level if sx on abx 682.9-CELLULITIS/ABSCESS MEDICATIONS: SEPTRA DS ORAL TABLET 800-160 MG, 1 Two Times A Day, 28 Dispensed, 14 Duration/Days Supply, status:NEW PRESCRIPTION, 11/29/2005. LAB ORDERS: Order number: [id number] Test Ordered: CULTURE, AEROBIC BACTERIA 4550 RETURN VISIT : Instructed to call if not improving. Electronically Signed by: Skyler Doll MD on Tuesday, November 29, 2005 documented in this encounter Plan of Treatment Upcoming Encounters Date Type Department Care Team (Late st Contact Info) Description 09/30/2025 11:00 AM CDT Office Visit [facility] [place] [address] Skyler Doll MD [address] [place], [place] [id number] documented as of this encounter Visit Diagnoses Not on filedocumented in this encounter Care Teams Astronomy Instructor Relationship Specialty Start Date End Date Skyler Doll MD PCP - General 09/07/07 documented as of this encounter
--- OUTSIDE RECORDS SUMMARY | 2025-06-04 12:15 | XMS_ITS | Encounter Summary ---
Author Organization [facility] Address 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 CHIEF COMPLAINT lesion on lip. HISTORY: 2-3 d lip lesion starting again, inc redness SOCIAL HISTORY: TOBACCO USE: Has no significant smoking history. DISCUSSED SMOKING: neg. DISCUSSED SMOKING: neg. PHYSICAL EXAMINATION: lip erythema, small pustule NECK/THYROID: Trachea midline. No thyroid enlargement, tenderness, or mass. No supraclavicular or cervical adenopathy. RESPIRATORY: Clear to auscultation and percussion. Normal respiratory effort. CARDIOVASCULAR: CARDIAC: Regular rhythm. No murmurs, rubs, or gallops. EDEMA/VARICOSITIES OF EXTREMITIES: No edema or varicosities. ASSESSMENT/PLAN: 300.00-ANXIETY stable 682.9-CELLULITIS/ABSCESS rx, reassess if worsens, discussed MEDICATIONS: SEPTRA DS ORAL TABLET 800-160 MG, 1 Two Times A Day, 28 Dispensed, 14 Duration/Days Supply, status:CONTINUED, 04/16/2007. MUPIROCIN EXTERNAL OINTMENT 2 %, DIRECTED, 7 Duration/Days Supply, status: CONTINUED, 04/16/2007. 780.39-SEIZURE cont med Patient Education: Risks, benefits, and possible side effects of medication(s) were reviewed with the patient. RETURN VISIT : Instructed to call if not improving. Electronically Signed by: Skyler Doll MD on Monday, April 16, 2007 documented in this encounter Plan of Treatment Upcoming Encounters Date Type Department Care Team (Late st Contact Info) Description 09/30/2025 11:00 AM CDT Office Visit [facility] Care [address] [address] Skyler Doll MD [address] [place] [address] documented as of this encounter Visit Diagnoses Not on filedocumented in this encounter Care Teams Gospel Singer Relationship Specialty Start Date End Date Skyler Doll MD PCP - General 09/07/07 documented as of this encounter
--- OUTSIDE RECORDS SUMMARY | 2025-06-04 12:15 | XMS_ITS | Encounter Summary ---
Author Organization [facility] Address [address] [place] [address] Care Team Providers Care Geosciences Faculty Member Name Role Phone Skyler Doll MD Primary Care Provider [phone] Encounter Details Date Type Department Care Team (Late Contact Info) Description 04/19/2004 Outpatient Historical [facility] Internal Medicine [address] [address] Skyler Doll MD [address] [place] [address] [address] [place] [address] Social History Tobacco Use Types Packs/Day Years Used Date Smoking Tobacco: Never Assessed Comments Unknown Sex and Gender Information Value Date Recorded Sex Assigned at Not on file Legal Sex Female 3:12 AM 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 Gender Identity Not on file Sexual Orientation Not on file documented as of this encounter Last Filed Vital Signs Vital Sign Reading Time Taken Comments Blood Pressure 130/80 04/19/2004 3:15 PM 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 Pulse - - Temperature - - Respiratory Rate - - Oxygen Saturation - - Inhaled Oxygen Concentration - - Weight 93.9 kg (207 lb) 04/19/2004 3:15 PM 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 Height - - Body Mass Index - - documented in this encounter Plan of Treatment Upcoming Encounters Date Type Department Care Team (Late Contact Info) Description 09/30/2025 11:00 AM CDT Office Visit [facility] Primary Care [address] [place] [address] Skyler Doll MD [address] [place] [address] [address] [address] documented as of this encounter Visit Diagnoses Not on filedocumented in this encounter Care Teams Geosciences Faculty Member Relationship Specialty Start Date End Date Skyler Doll MD PCP - General 09/07/07 documented as of this encounter
[2025-06-04 12:50] VITALS: BP 145/91; PULSE 83; RESP 20; TEMP 37.1; O2SAT 98
--- NOTE | 2025-06-04 14:01 | ED.URI ---
HPI - URI/Sore Throat General Chief Complaint: Upper Respiratory Infection Stated Complaint: couch/chest congestion Time Seen by Provider: 06/04/25 13:50 Source: patient, RN notes reviewed and old records reviewed Mode of arrival: ambulatory Limitations: no limitations History of Present Illness HPI Narrative: 49 year old female who presents to [facility] care with complaints of 2 days of sinus congestion couth no chills or fevers. with increase in her symptoms today. Patient reports that she does not have any sore throat or ear pain. denies any shortness of breath or any GI symptms. Ptoent has taken some Zyrtec. MD elicited complaint: cough, rhinorrhea, nasal congestion and sinus pain Pertinent past history: sinusitis Onset (ago): day(s) (2) Consistency: progressively worsening Severity: moderate Able to tolerate fluids by mouth: Yes Treatments prior to arrival: other (zyrtec) Related Data Home Medications ?Medication ?Instructions ?Recorded ?Confirmed ?Last Taken ?Type citalopram 20 mg tablet 20 mg PO DAILY 05/12/22 05/12/22 Unknown History pravastatin 10 mg tablet mg 06/04/25 Unknown History Allergies Allergy/AdvReac Type Severity Reaction Status Date / Time No Known Allergies Allergy Verified 06/04/25 12:57 Review of Systems Review of Systems: CONSTITUTIONAL: Denies malaise,no chills, sweats, or fever. EYES: Denies visual changes, redness, or discharge. ENT: Reports rhinorrhea, congestion, sinus pain, no otalgia and no sore throat. CARDIOVASCULAR: Denies chest pain, palpitations, or edema. RESPIRATORY: Reports cough.? Denies dyspnea. GASTROINTESTINAL: Denies abdominal pain, nausea, vomiting, diarrhea SKIN: Denies rash or itching. MUSCULOSKELETAL: Denies myalgia. NEUROLOGIC: Denies headache. All systems reviewed & are unremarkable except as noted in HPI and below PMFSH Past Medical History Medical History (Updated 06/05/25 @ 21:35 by Bri Herbert APRN) Sinusitis Surgical History Surgical History (Updated 06/05/25 @ 21:33 by Bri Herbert APRN) [place] teeth extracted History of orthopedic surgery left wrist with hardware Social History Social History (Updated 06/05/25 @ 21:33 by Bri Herbert APRN) Smoking status: Never smoker Alcohol intake: current Alcohol use details: rare social Substance use type: does not use Living arrangements: with family Gender identity (if verbalized by the patient): Female Comments At time of signature, agree with nursing past medical, surgical, social and family history. There is no relevant family history pertinent to the presenting complaint Exam Narrative: GENERAL: Well-appearing, well-nourished, and in no acute distress. HEAD: Normocephalic EYES: PERRLA, conjunctivae clear ENT: Nares clear, turbinates edematous and erythematous, clear discharge sinus pressure. Mucous membranes moist. TM pearly gutierrez with dull light reflex bilaterally; no tragal tenderness. Oropharynx erythematous without lesions. Tonsils not enlarged and without exudate, no drooling, no hoarseness, no trismus, uvula midline.post nasal drainage NECK: Supple. No lymphadenopathy CHEST: Clear to auscultation, breath sounds equal. No wheezing, rhonchi, rales, or stridor. No respiratory distress, speaks in full sentences.cough noted SAO2 98% on room air HEART: Regular rate and rhythm. No murmur heard. SKIN: Warm, dry, no rash. NEURO: Alert and oriented x3. PSYCH: Normal mood and affect Course Course Level of Care: Express Care Visit Vital Signs Vital signs: Vital Signs Temperature 37.1 C 06/04/25 12:50 Pulse Rate 83 06/04/25 12:50 Respiratory Rate 20 06/04/25 12:50 Blood Pressure 145/91 H 06/04/25 12:50 Pulse Oximetry 98 06/04/25 12:50 Oxygen Delivery Room Air 06/04/25 12:50 Temperature 37.1 C 06/04/25 12:50 Pulse Rate 83 06/04/25 12:50 Respiratory Rate 20 06/04/25 12:50 Blood Pressure 145/91 H 06/04/25 12:50 Pulse Oximetry 98 06/04/25 12:50 Oxygen Delivery Room Air 06/04/25 12:50 reviewed MDM MDM Narrative Medical decision making narrative: patient reports 2 day history of sinus congestion and drainage and cough with increased symptoms reported today Patient reports no chills fevers or body aches. Patient tested negative for COVID and Flu. Rx Medrol dose pack and Flonase nasal spray.Advised supportive measures and signs/symptoms to go to the ER. Pt is appropriate for outpt treatment and f/u. Differential Diagnosis Differential Diagnosis: Differential diagnostic considerations for upper respiratory infection include upper respiratory infection, croup, otitis media, sinusitis, viral infection, bronchitis, influenza, pharyngitis, strep, uvulitis.? Lab Data Labs: Lab Results 06/04/25 Range/Units 14:14 POC Influenza A Ag Negative (Negative) POC Influenza B Ag Negative (Negative) POC SARS CoV-2 Ag Negative (Negative) reviewed Critical Care Time Critical Care Time Critical Care Time: No Discharge Plan Discharge Clinical Impression: Upper respiratory infection Qualifiers: URI type: unspecified URI Qualified Code(s): J06.9 - Acute upper respiratory infection, unspecified Patient Disposition: Home Condition: Stable Instructions: Antibiotic Form, Upper Respiratory Infection (ED) Additional Instructions: Increase fluids especially juices and water Stys-[id number]-[id number] cough and cold medicine of your choice for your symptoms recommend Delsym or Robitussin DM Zyrtec Claritin or Vicki daily include Coricidin brand decongestant due to blood pressure being 145/91 Steroids as directed--take with food heat to the face 20-30 minutes 4-6 times a day for pain Salt water gargles, throat lozenges or throat sprays as desired Tylenol or ibuprofen for any fever pain monitor for fevers check temperature every 6 hours If your symptoms persist, change or worsen significantly before you can contact your personal physician then please, without delay, go to the emergency department for further evaluation. Follow-up with PCP in 7-10 days or sooner if needed Follow up with PCP soon in regards to your blood pressure which is elevated above threshold for referral. Blood pressure above 120/80 may indicate pre-hypertension. 145/91 Patient Language: Nepali Prescriptions: New methylprednisolone [Medrol (Nicolas)] 4 mg tablets,dose pack See Rx Instructions .ROUTE .COMPLEX Qty: 21 0RF Rx Instructions: orally per package directions fluticasone propionate [Flonase Allergy Relief] 50 mcg/actuation spray,suspension 1 spray intranasal DAILY Qty: 16 0RF Rx Instructions: administer into each nostril No Action citalopram 20 mg tablet 20 mg PO DAILY pravastatin 10 mg tablet Follow-up/Referrals: Lavon,Skyler Chicas MD [Primary Care Provider] Time of Disposition: 14:09 Quality Angela Coma Scale Eyes: Open Verbal: Oriented and Alert Motor: Follows Commands Angela Coma Total Score: 15
[2025-06-04 14:16] LABS: EDCOVIDSCREEN Negative (Negative); EDINFLUASCREEN Negative (Negative); EDINFLUBSCREEN Negative (Negative)
== END 2025-06-04 14:14 | disposition home or self-care (01) ==
PROVIDERS: Emergency Provider Registered Nurse; PCP Internal Medicine
DX: J06.9 Acute upper respiratory infection, unspecified (principal); Z20.822 Contact with and (suspected) exposure to COVID-19
CPT/HCPCS: 87426; 87804; 99213; G0463